=== PATIENT | male | born 1950 | race Caucasian/White ===

== ENCOUNTER → 2018-09-25 | Outpatient (CLI) | payer MEDICARE ==
--- NOTE | 2018-09-25 10:02 | Diagnostic Imaging Report ---
INDICATION: RT TESTE SWELLING AND PAIN. TECHNIQUE: High-resolution grayscale, and color Doppler ultrasound is performed of the scrotum and bilateral testicles. COMPARISON: None FINDINGS: The right testicle measures 4.6 x 2.3 x 2.8 cm. The left testicle measures 4.5 x 2.6 x 2.8 cm. The echogenicity and vascularity of the testicles appears normal and symmetric. No masses are seen. Imaged portions of the epididymis appear normal bilaterally. There is minimal fluid bilaterally without kofi hydrocele. IMPRESSION: 1. No sonographic findings of torsion or orchitis. Dictated by: Dictated on workstation # [id number]
== END ==
LOC: RAD 09:11
PROVIDERS: ATTEND Nurse Practitioner Family
DX: N50.89 Other specified disorders of the male genital organs (principal); I10 Essential (primary) hypertension; E78.49 Other hyperlipidemia; M10.9 Gout, unspecified; E11.9 Type 2 diabetes mellitus without complications
CPT/HCPCS: 76870

== ENCOUNTER → 2020-12-07 | Outpatient (CLI) | payer MEDICARE ==
[2020-12-07] MEDS: CATHETER FLUSH 10 ML SYR IV PRN (07:08)
[2020-12-07 08:04] VITALS: BP 136/79
--- NOTE | 2020-12-07 11:28 | Cardiology Stress Test Report ---
Stress Test Report Date of Procedure/Referring: Date of Procedure: Dec 07, 2020 PCP Denice Dunn DO Admitting Physician Denice Dunn DO Indications: SOB Baseline Vital Signs Vital Signs Date Time Temp Pulse Resp B/P (MAP) Pulse Ox O2 Delivery O2 Flow Rate FiO2 12/07/20 08:04 50 136/79 (98) Summary: Patient receive a resting and stress dose of Myoview, images were acquired and reviewed in the short axis view, horizontal long axis view and vertical long axis view. TID: 0.91 SSS: 0 SDS: 0 EF: 56 1. No significant ischemia or infarction on SPECT images 2. Normal left ventricular size, ejection fraction 56% Copy Copies To 1: DENICE DUNN BASHAR J MD Dec 07, 2020 11:28
== END ==
LOC: CARD 07:00
PROVIDERS: ATTEND Internal Medicine
DX: R06.02 Shortness of breath (principal)
CPT/HCPCS: 78452; 93017; A9502